=== PATIENT | female | born 1990 | race Caucasian/White ===

== ENCOUNTER 2017-05-08 09:09 | Outpatient (CLI) | payer BC ==
[~2017-05-08 09:09] MED LIST: Depo-Provera IM; ENDOCET 5-3251 EACH PO; EVENING PRIMRO500 MG PO; IBUPROFEN800 MG PO; PRENATAL TABLE1 EAC3 PO; Theragran PO; oxyCODONE PO
[2017-05-08 09:31] VITALS: BP 108/56
== END 2017-05-08 14:50 | disposition home or self-care (01) ==
LOC: LDRP-OP 09:09 → 2WEST 09:11 → LDRP-OP 07-29 10:09
DX: Z03.79 Encounter for other suspected maternal and fetal conditions ruled out (principal); G89.29 Other chronic pain; V49.88XA Car occupant (driver) (passenger) injured in other specified transport accidents, initial encounter; Z3A.32 32 weeks gestation of pregnancy
CPT/HCPCS: 59025; 76805; 85460; G0378

== ENCOUNTER 2017-06-27 18:41 | Inpatient (IN) | payer BC ==
[2017-06-27] VITALS (12 sets, daily range): BP systolic 95–127; BP diastolic 54–75
[2017-06-27] MEDS ORDERED: PRENATAL TABLE1 EACH PO (19:39)
[2017-06-27 19:46] LABS: EOSINOPHIL (%) 0.5 % (0-5); EOSINOPHIL COUNT 0.1 K/uL (0-0.3); HEMATOCRIT 34.2 % (36.0-46.0); IMMATURE GRANULOCYTE (%) 0.5 % (0.0-0.7); IMMATURE GRANULOCYTE COUNT 0.1 K/uL; INSTRUMENT ABS NEUTROPHIL CT 8.9 K/uL; LYMPHOCYTE COUNT 2.7 K/uL (1.0-2.8); MCH 30.3 PG (29.0-34.0); MCHC 33.3 G/DL (30.0-36.0); MONOCYTE COUNT 0.8 K/uL (0-0.8); NEUTROPHIL (%) 71.3 % (45-76); NEUTROPHIL COUNT 8.9 K/uL (1.8-6.4); PLATELET COUNT 261 K/uL (156-360); RBC DIS.WIDTH-CV 13.1 % (11.8-14.6); RED BLOOD COUNT 3.76 M/uL (3.80-5.20); WHITE BLOOD COUNT 12.5 K/uL (4.1-10.2)
[2017-06-28] VITALS (14 sets, daily range): BP systolic 90–116; BP diastolic 54–76
[2017-06-28] MEDS ORDERED: IBUPROFEN800 MG PO (04:54)
[2017-06-29 23:00] VITALS: BP 101/58
[2017-06-30 07:52] VITALS: BP 106/68
[2017-06-30] MEDS ORDERED: ASPIRIN EC325 MG PO (08:55)
== END 2017-06-30 11:37 | disposition home or self-care (01) | DRG 775 ==
LOC: LDRP-OP 18:41 → 2WEST 18:42 → LDRP-OP 06-28 16:55 → 2WEST 06-30 11:37 → LDRP-OP 07-29 16:01
PROVIDERS: Nurse Practitioner
PROC: 10E0XZZ Delivery of Products of Conception, External Approach (ICD-10-PCS; principal; 2017-06-27)
PROC: 00HU33Z Insertion of Infusion Device into Spinal Canal, Percutaneous Approach (ICD-10-PCS; principal; 2017-06-27)
PROC: 10907ZC Drainage of Amniotic Fluid, Therapeutic from Products of Conception, Via Natural or Artificial Opening (ICD-10-PCS; principal; 2017-06-27)
PROC: 3E0R3BZ Introduction of Anesthetic Agent into Spinal Canal, Percutaneous Approach (ICD-10-PCS; principal; 2017-06-27)
DX: O22.23 Superficial thrombophlebitis in pregnancy, third trimester (principal); Z3A.39 39 weeks gestation of pregnancy; Z87.891 Personal history of nicotine dependence; Z37.0 Single live birth
CPT/HCPCS: 85025; 93971; C1755; G0378; J3010; J7120